=== PATIENT | male | born 1965 | race Caucasian/White ===

== ENCOUNTER 2020-08-06 00:32 | Inpatient (IN) | payer OTHER ==
[~2020-08-06] VITALS: Ht 182.9 cm; Wt 129.9 kg
[2020-08-06 03:41] LABS: Basophils # (auto) 0.1 10 ^3/uL (0-0.2); Basophils % (auto) 1.1 % (0.0-2.0); Eosinophils # (auto) 0.2 10 ^3/uL (0-0.8); Hematocrit 32.8 % (41.0-53.0); Hemoglobin 10.7 g/dL (13.5-17.5); Lymphocytes # (auto) 1.3 10 ^3/uL (0.4-5.4); Lymphocytes % (auto) 15.2 % (10.0-50.0); Mean Corpuscular Hemoglobin 25.4 pg (28.0-32.0); Mean Corpuscular Hgb Conc. 32.6 g/dL (32.0-36.0); Mean Corpuscular Volume 77.9 fL (80.0-100.0); Monocytes # (auto) 0.7 10 ^3/uL (0-1.3); Monocytes % (auto) 8.2 % (0.0-12.0); Neutrophils # (auto) 6.3 10 ^3/uL (1.6-8.6); Neutrophils % (auto) 73.5 % (37.0-80.0); Nucleated Red Blood Cells % 0.2 %; Platelet Count (auto) 264 10^3/uL (140-450); Red Blood Cells 4.21 10^6/uL (4.5-5.90); Red Cell Distribution Width 17.8 % (11.8-14.3); White Blood Cell 8.5 10^3/uL (4.4-10.8)
[2020-08-06 03:53] LABS: Alanine Aminotransferase 66 U/L (16-61); Albumin 1.8 g/dL (3.4-5.0); Anion Gap 6 (5-15); Aspartate Aminotransferase 43 U/L (15-37); BUN/Creatinine Ratio 8.5; Blood Urea Nitrogen 8 mg/dL (7-18); Calcium 8.5 mg/dL (8.5-10.1); Carbon Dioxide 30 mmol/L (21-32); Chloride 101 mmol/L (98-107); GFR African American 108 mL/min; GFR Non-African American 89 mL/min; Glucose 103 mg/dL (74-106); Magnesium 1.8 mg/dL (1.6-2.6); Potassium 4.4 mmol/L (3.5-5.1); Sodium 137 mmol/L (136-145)
[2020-08-06 03:58] LABS: Alkaline Phosphatase 97 U/L (45-117); Bilirubin, Total 0.2 mg/dL (0.2-1.0); Total Protein 6.8 g/dL (6.4-8.2)
[2020-08-06 04:07] LABS: INR 1.05 (0.9-1.15); Partial Thromboplastin Time 31.7 sec (23.0-31.2)
[2020-08-06 04:13] LABS: Urine Bacteria NONE SEEN /hpf (None Seen); Urine Blood Negative /uL (Negative); Urine Mucus FEW (None Seen); Urine Specific Gravity 1.018 (1.001-1.035); Urine WBC 1 /hpf (0 - 3)
[2020-08-06] MEDS ORDERED: IOHEXOL 350 MG/ML 100ML IJ ONE (06:07)
[2020-08-06] MEDS ORDERED: DexAMETHasone SOD PHOS 10MG/1ML VIAL INJ IV ONE (11:45)
[2020-08-06] MEDS ORDERED: cefTRIAXone 1GM/50ML D5W 50 ML IV ONE (11:45)
[2020-08-06] MEDS ORDERED: FUROSEMIDE 40 MG/4 ML VIAL IV ONE (11:45)
[2020-08-06] MEDS ORDERED: AZITHROMYCIN 500MG/ 250ML 250 ML IV ONE (11:45)
[2020-08-06] MEDS ORDERED: VANCOMYCIN 1GM/250ML 250 ML IV ONE (14:30)
[2020-08-06] MEDS ORDERED: ACETAMINOPHEN 500 MG TAB PO PRN ×2 (14:30)
[2020-08-06] MEDS ORDERED: LACTULOSE 20Gm/30ML SOLN PO PRN (14:30)
[2020-08-06] MEDS ORDERED: NITROGLYCERIN 0.4 MG SL TAB SL PRN (14:30)
[2020-08-06] MEDS ORDERED: MORPHINE SULF INJ 2 MG/ML SYRINGE 1ML IV PRN ×2 (14:30)
[2020-08-06] MEDS ORDERED: TEMAZEPAM 15 MG CAP PO PRN (14:30)
[2020-08-06] MEDS ORDERED: PROMETHAZINE HCL 25 MG/ML 1ML IV PRN (14:30)
[2020-08-06] MEDS ORDERED: traMADol HCL 50 MG TAB PO PRN (14:30)
[2020-08-06] MEDS ORDERED: VANCOMYCIN PER PHARMACY 0 MG IV SCH (14:30)
[2020-08-06] MEDS: AZITHROMYCIN 500MG/ 250ML 250 ML IV SCH (15:03)
[2020-08-06 15:44] VITALS: BP 112/50
[2020-08-06] MEDS: PIPERACILLIN-TAZOB 3.375GM 100 ML IV SCH (20:35)
[2020-08-06] MEDS ORDERED: ALBUTEROL SULFATE 90 MCG MDI IN ONE (20:44)
[2020-08-06 21:35] VITALS: BP 134/83
[2020-08-06] MEDS: BUDESONIDE (INHALATION) 180 MCG IH IN SCH (22:00)
[2020-08-07] MEDS: VANCOMYCIN 1GM/250ML 250 ML IV SCH ×3 (00:03→21:18)
[2020-08-07] MEDS: SODIUM CHLOR 0.9% PF (SALINE LOCK) 10ML VIAL/SYR IV SCH ×4 (00:03→21:19)
[2020-08-07] MEDS: FAMOTIDINE 20 MG TAB PO SCH ×3 (00:03→21:19)
[2020-08-07] MEDS: PIPERACILLIN-TAZOB 3.375GM 100 ML IV SCH ×4 (02:29→17:29)
[2020-08-07 04:39] VITALS: BP 128/76
[2020-08-07 05:34] LABS: Basophils # (auto) 0 10 ^3/uL (0-0.2); Basophils % (auto) 0.2 % (0.0-2.0); Eosinophils # (auto) 0 10 ^3/uL (0-0.8); Monocytes # (auto) 0.3 10 ^3/uL (0-1.3)
[2020-08-07 05:35] LABS: Hematocrit 36.4 % (41.0-53.0); Hemoglobin 12.1 g/dL (13.5-17.5); Lymphocytes # (auto) 0.8 10 ^3/uL (0.4-5.4); Lymphocytes % (auto) 9.2 % (10.0-50.0); Mean Corpuscular Hgb Conc. 33.4 g/dL (32.0-36.0); Mean Corpuscular Volume 78.1 fL (80.0-100.0); Monocytes % (auto) 3.1 % (0.0-12.0); Neutrophils % (auto) 87.5 % (37.0-80.0); Platelet Count (auto) 269 10^3/uL (140-450); Red Blood Cells 4.66 10^6/uL (4.5-5.90); Red Cell Distribution Width 18.3 % (11.8-14.3); White Blood Cell 9.1 10^3/uL (4.4-10.8)
[2020-08-07 05:48] LABS: Chloride 101 mmol/L (98-107); Potassium 4.4 mmol/L (3.5-5.1); Sodium 135 mmol/L (136-145)
[2020-08-07 05:58] LABS: Alanine Aminotransferase 66 U/L (16-61); Albumin 1.9 g/dL (3.4-5.0); Alkaline Phosphatase 95 U/L (45-117); Anion Gap 5 (5-15); Aspartate Aminotransferase 32 U/L (15-37); BUN/Creatinine Ratio 13.8; Bilirubin, Total 0.3 mg/dL (0.2-1.0); Blood Urea Nitrogen 15 mg/dL (7-18); Calcium 8.3 mg/dL (8.5-10.1); Carbon Dioxide 29 mmol/L (21-32); Cholesterol 202 mg/dL (< 200); GFR African American 91 mL/min; GFR Non-African American 75 mL/min; Glucose 142 mg/dL (74-106); HDL Cholesterol 24 mg/dL (40-59); LDL Cholesterol 173 mg/dL (< 100); Total Protein 6.8 g/dL (6.4-8.2); Triglycerides 112 mg/dL (< 150)
[2020-08-07] MEDS: BUDESONIDE (INHALATION) 180 MCG IH IN SCH ×2 (07:11→22:29)
[2020-08-07] MEDS: ALBUTEROL SULF HFA 90MCG INH 200DOSE IN SCH ×3 (07:11→22:29)
[2020-08-07 08:15] VITALS: BP 141/85
[2020-08-07 09:00] VITALS: BP 141/85
[2020-08-07] MEDS ORDERED: DexAMETHasone SOD PHOS 10MG/1ML VIAL INJ IV SCH (10:00)
[2020-08-07] MEDS ORDERED: ENOXAPARIN SOD 40 MG/0.4 ML SYRINGE SC SCH (10:00)
[2020-08-07] MEDS: POTASSIUM CHL 20 Meq TABLET PO SCH (10:13)
[2020-08-07] MEDS: ENOXAPARIN SOD 40 MG/0.4 ML SYRINGE SC SCH (10:13)
[2020-08-07] MEDS: ZINC SULFATE 220mg CAP or TAB PO SCH (10:13)
[2020-08-07] MEDS: AZITHROMYCIN 500MG/ 250ML 250 ML IV SCH (10:13)
[2020-08-07] MEDS: CHOLECALCIFEROL (VITD3) 2,000 UNIT CAP PO SCH (10:14)
[2020-08-07] MEDS: ASCORBIC ACID 1,000 MG TAB PO SCH (10:14)
[2020-08-07] MEDS: FUROSEMIDE 40 MG/4 ML VIAL IV SCH (10:14)
[2020-08-07 13:00] VITALS: BP 142/90
[2020-08-07] MEDS ORDERED: VANCOMYCIN PER PHARMACY 0 MG IV SCH (16:15)
[2020-08-07 17:00] VITALS: BP 144/96
[2020-08-07 22:00] VITALS: BP 130/86
[2020-08-08] MEDS: PIPERACILLIN-TAZOB 3.375GM 100 ML IV SCH ×5 (00:10→23:29)
[2020-08-08 05:00] VITALS: BP 107/53
[2020-08-08] MEDS: SODIUM CHLOR 0.9% PF (SALINE LOCK) 10ML VIAL/SYR IV SCH ×3 (05:14→21:42)
[2020-08-08] MEDS: VANCOMYCIN 1GM/250ML 250 ML IV SCH ×3 (05:14→21:42)
[2020-08-08 06:46] LABS: Eosinophils # (auto) 0 10 ^3/uL (0-0.8); Eosinophils % (auto) 0.1 % (0.0-7.0); Hemoglobin 11.4 g/dL (13.5-17.5); Monocytes # (auto) 0.9 10 ^3/uL (0-1.3); Neutrophils # (auto) 8.2 10 ^3/uL (1.6-8.6); Nucleated Red Blood Cells % 0.1 %
[2020-08-08 06:48] LABS: Basophils # (auto) 0.1 10 ^3/uL (0-0.2); Basophils % (auto) 0.5 % (0.0-2.0); Hematocrit 35.5 % (41.0-53.0); Lymphocytes # (auto) 1.4 10 ^3/uL (0.4-5.4); Lymphocytes % (auto) 13.2 % (10.0-50.0); Mean Corpuscular Hemoglobin 25.4 pg (28.0-32.0); Mean Corpuscular Hgb Conc. 32.2 g/dL (32.0-36.0); Monocytes % (auto) 8.6 % (0.0-12.0); Neutrophils % (auto) 77.6 % (37.0-80.0); Platelet Count (auto) 341 10^3/uL (140-450); Red Blood Cells 4.49 10^6/uL (4.5-5.90); Red Cell Distribution Width 18.3 % (11.8-14.3); White Blood Cell 10.5 10^3/uL (4.4-10.8)
[2020-08-08 07:31] LABS: BUN/Creatinine Ratio 16.2; Calcium 8.6 mg/dL (8.5-10.1); Potassium 4.1 mmol/L (3.5-5.1)
[2020-08-08] MEDS: ALBUTEROL SULF HFA 90MCG INH 200DOSE IN SCH ×3 (08:02→21:55)
[2020-08-08] MEDS: BUDESONIDE (INHALATION) 180 MCG IH IN SCH ×2 (08:03→21:55)
[2020-08-08] MEDS: FAMOTIDINE 20 MG TAB PO SCH ×2 (08:54→21:42)
[2020-08-08] MEDS: POTASSIUM CHL 20 Meq TABLET PO SCH (08:54)
[2020-08-08] MEDS: FUROSEMIDE 40 MG/4 ML VIAL IV SCH (08:54)
[2020-08-08] MEDS: ZINC SULFATE 220mg CAP or TAB PO SCH (08:54)
[2020-08-08] MEDS: ASCORBIC ACID 1,000 MG TAB PO SCH (08:55)
[2020-08-08] MEDS: ENOXAPARIN SOD 40 MG/0.4 ML SYRINGE SC SCH (08:55)
[2020-08-08] MEDS: CHOLECALCIFEROL (VITD3) 2,000 UNIT CAP PO SCH (08:55)
[2020-08-08 09:00] VITALS: BP 164/93
[2020-08-08 13:00] VITALS: BP 128/77
[2020-08-08 17:00] VITALS: BP 129/79
[2020-08-08] MEDS: ENOXAPARIN SOD 100 MG/1 ML SYRINGE SC SCH (21:43)
[2020-08-08 22:24] VITALS: BP 140/91
[2020-08-08] MEDS: MUPIROCIN 2% OINT 15gm or 22gm EACHNOSTRI SCH (22:34)
[2020-08-09] MEDS: VANCOMYCIN 1GM/250ML 250 ML IV SCH (04:18)
[2020-08-09 05:00] VITALS: BP 132/83
[2020-08-09] MEDS: SODIUM CHLOR 0.9% PF (SALINE LOCK) 10ML VIAL/SYR IV SCH ×3 (05:20→21:21)
[2020-08-09] MEDS: PIPERACILLIN-TAZOB 3.375GM 100 ML IV SCH ×4 (05:21→23:30)
[2020-08-09 07:20] LABS: CRP High Sensitivity 3.4 mg/dL (< 0.3)
[2020-08-09] MEDS: ALBUTEROL SULF HFA 90MCG INH 200DOSE IN SCH ×3 (07:49→22:16)
[2020-08-09] MEDS: BUDESONIDE (INHALATION) 180 MCG IH IN SCH ×2 (07:52→22:16)
[2020-08-09 09:00] VITALS: BP 144/84
[2020-08-09] MEDS: MUPIROCIN 2% OINT 15gm or 22gm EACHNOSTRI SCH ×3 (10:00→21:21)
[2020-08-09] MEDS: FAMOTIDINE 20 MG TAB PO SCH ×2 (11:04→21:21)
[2020-08-09] MEDS: FUROSEMIDE 40 MG/4 ML VIAL IV SCH (11:04)
[2020-08-09] MEDS: ENOXAPARIN SOD 100 MG/1 ML SYRINGE SC SCH (11:05)
[2020-08-09] MEDS: ZINC SULFATE 220mg CAP or TAB PO SCH (11:05)
[2020-08-09] MEDS: POTASSIUM CHL 20 Meq TABLET PO SCH (11:05)
[2020-08-09] MEDS: ASCORBIC ACID 1,000 MG TAB PO SCH (11:05)
[2020-08-09] MEDS: CHOLECALCIFEROL (VITD3) 2,000 UNIT CAP PO SCH (11:06)
[2020-08-09 13:00] VITALS: BP 145/96
[2020-08-09] MEDS: LINEZOLID 600MG TABLET PO SCH (21:21)
[2020-08-09 22:00] VITALS: BP 136/87
[2020-08-10 05:00] VITALS: BP 130/90
[2020-08-10] MEDS: SODIUM CHLOR 0.9% PF (SALINE LOCK) 10ML VIAL/SYR IV SCH ×3 (05:57→21:34)
[2020-08-10] MEDS: PIPERACILLIN-TAZOB 3.375GM 100 ML IV SCH ×4 (05:57→23:50)
[2020-08-10] MEDS: BUDESONIDE (INHALATION) 180 MCG IH IN SCH ×2 (06:21→22:50)
[2020-08-10] MEDS: ALBUTEROL SULF HFA 90MCG INH 200DOSE IN SCH ×3 (06:21→22:50)
[2020-08-10 08:00] VITALS: BP 129/86
[2020-08-10] MEDS: FUROSEMIDE 40 MG/4 ML VIAL IV SCH (09:02)
[2020-08-10] MEDS: MUPIROCIN 2% OINT 15gm or 22gm EACHNOSTRI SCH ×2 (09:02→21:35)
[2020-08-10] MEDS: ASCORBIC ACID 1,000 MG TAB PO SCH (09:03)
[2020-08-10] MEDS: FAMOTIDINE 20 MG TAB PO SCH ×2 (09:03→21:34)
[2020-08-10] MEDS: ZINC SULFATE 220mg CAP or TAB PO SCH (09:03)
[2020-08-10] MEDS: LINEZOLID 600MG TABLET PO SCH ×2 (09:03→21:34)
[2020-08-10] MEDS: POTASSIUM CHL 20 Meq TABLET PO SCH (09:03)
[2020-08-10] MEDS: CHOLECALCIFEROL (VITD3) 2,000 UNIT CAP PO SCH (09:03)
[2020-08-10] MEDS: ENOXAPARIN SOD 40 MG/0.4 ML SYRINGE SC SCH (09:04)
[2020-08-10 11:57] VITALS: BP 113/70
[2020-08-10 17:00] VITALS: BP 133/81
[2020-08-10 18:38] LABS: Basophils # (auto) 0 10 ^3/uL (0-0.2); Eosinophils # (auto) 0.1 10 ^3/uL (0-0.8); Monocytes # (auto) 0.9 10 ^3/uL (0-1.3); Nucleated Red Blood Cells % 0.1 %
[2020-08-10 18:39] LABS: Basophils % (auto) 0.5 % (0.0-2.0); Eosinophils % (auto) 1.1 % (0.0-7.0); Hematocrit 41.8 % (41.0-53.0); Hemoglobin 13.8 g/dL (13.5-17.5); Lymphocytes # (auto) 1.8 10 ^3/uL (0.4-5.4); Lymphocytes % (auto) 19.6 % (10.0-50.0); Mean Corpuscular Hemoglobin 25.9 pg (28.0-32.0); Mean Corpuscular Hgb Conc. 33.1 g/dL (32.0-36.0); Mean Corpuscular Volume 78.4 fL (80.0-100.0); Neutrophils # (auto) 6.3 10 ^3/uL (1.6-8.6); Neutrophils % (auto) 68.8 % (37.0-80.0); Platelet Count (auto) 440 10^3/uL (140-450); Red Blood Cells 5.34 10^6/uL (4.5-5.90); White Blood Cell 9.1 10^3/uL (4.4-10.8)
[2020-08-10 18:51] LABS: BUN/Creatinine Ratio 10.6; Calcium 8.7 mg/dL (8.5-10.1); Potassium 4.2 mmol/L (3.5-5.1)
[2020-08-10 22:00] VITALS: BP 153/94
[2020-08-10] MEDS ORDERED: ALBUTEROL SULF 2.5 MG/0.5ML(0.5%) NEB SOLN ONE (22:30)
[2020-08-10] MEDS ORDERED: BUDESONIDE (INHALATION) 0.5 MG/2 ML NEB ONE (22:30)
[2020-08-11 05:05] VITALS: BP 127/79
[2020-08-11] MEDS: PIPERACILLIN-TAZOB 3.375GM 100 ML IV SCH ×3 (05:47→17:55)
[2020-08-11] MEDS: SODIUM CHLOR 0.9% PF (SALINE LOCK) 10ML VIAL/SYR IV SCH ×2 (05:47→09:49)
[2020-08-11 08:53] LABS: Eosinophils # (auto) 0.1 10 ^3/uL (0-0.8); Monocytes # (auto) 0.6 10 ^3/uL (0-1.3); Neutrophils # (auto) 7.5 10 ^3/uL (1.6-8.6)
[2020-08-11 08:55] LABS: Basophils # (auto) 0.3 10 ^3/uL (0-0.2); Basophils % (auto) 2.6 % (0.0-2.0); Eosinophils % (auto) 1.2 % (0.0-7.0); Hematocrit 47.6 % (41.0-53.0); Hemoglobin 15.3 g/dL (13.5-17.5); Lymphocytes # (auto) 1.6 10 ^3/uL (0.4-5.4); Lymphocytes % (auto) 15.5 % (10.0-50.0); Mean Corpuscular Hemoglobin 25.5 pg (28.0-32.0); Mean Corpuscular Hgb Conc. 32.1 g/dL (32.0-36.0); Mean Corpuscular Volume 79.3 fL (80.0-100.0); Neutrophils % (auto) 74.7 % (37.0-80.0); Nucleated Red Blood Cells % 0.2 %; Platelet Count (auto) 474 10^3/uL (140-450); Red Cell Distribution Width 18.7 % (11.8-14.3)
[2020-08-11 09:08] VITALS: BP 130/76
[2020-08-11 09:08] LABS: BUN/Creatinine Ratio 9.9; Calcium 9.8 mg/dL (8.5-10.1)
[2020-08-11] MEDS: MUPIROCIN 2% OINT 15gm or 22gm EACHNOSTRI SCH (09:47)
[2020-08-11] MEDS: ASCORBIC ACID 1,000 MG TAB PO SCH (09:47)
[2020-08-11] MEDS: FAMOTIDINE 20 MG TAB PO SCH (09:47)
[2020-08-11] MEDS: ZINC SULFATE 220mg CAP or TAB PO SCH (09:47)
[2020-08-11] MEDS: CHOLECALCIFEROL (VITD3) 2,000 UNIT CAP PO SCH (09:47)
[2020-08-11] MEDS: LINEZOLID 600MG TABLET PO SCH (09:48)
[2020-08-11] MEDS: ENOXAPARIN SOD 40 MG/0.4 ML SYRINGE SC SCH (09:48)
[2020-08-11] MEDS: POTASSIUM CHL 20 Meq TABLET PO SCH (09:49)
[2020-08-11] MEDS: ALBUTEROL SULF HFA 90MCG INH 200DOSE IN SCH ×2 (10:28→15:17)
[2020-08-11] MEDS: BUDESONIDE (INHALATION) 180 MCG IH IN SCH (10:28)
[2020-08-11 13:00] VITALS: BP 124/72
[2020-08-11] MEDS ORDERED: MUPI2OIN2 EACHNOSTRI (14:06)
[2020-08-11] MEDS ORDERED: CLIN300C8 PO (14:06)
[2020-08-11 15:08] VITALS: BP 124/72
[2020-08-12] MEDS ORDERED: DOXY-286 PO (14:36)
== END 2020-08-11 19:07 | disposition home or self-care (01) | DRG 720 ==
LOC: EDBD 00:32 → ER 00:38 → TELE 00:39 → TELE-EAST 18:32
PROVIDERS: ADMIT Internal Medicine; ATTEND Internal Medicine Nephrology
DX: A41.89 Other specified sepsis (principal); U07.1 COVID-19; J12.89 Other viral pneumonia; J81.1 Chronic pulmonary edema; J90 Pleural effusion, not elsewhere classified; I10 Essential (primary) hypertension; R73.9 Hyperglycemia, unspecified; R19.7 Diarrhea, unspecified; E78.5 Hyperlipidemia, unspecified; F32.9 Major depressive disorder, single episode, unspecified; F41.9 Anxiety disorder, unspecified; I25.10 Atherosclerotic heart disease of native coronary artery without angina pectoris; K44.9 Diaphragmatic hernia without obstruction or gangrene; R65.20 Severe sepsis without septic shock; J15.212 Pneumonia due to Methicillin resistant Staphylococcus aureus; D50.9 Iron deficiency anemia, unspecified; J96.21 Acute and chronic respiratory failure with hypoxia; I25.2 Old myocardial infarction; Z68.38 Body mass index [BMI] 38.0-38.9, adult; J44.0 Chronic obstructive pulmonary disease with (acute) lower respiratory infection; E66.01 Morbid (severe) obesity due to excess calories; J44.9 Chronic obstructive pulmonary disease, unspecified
CPT/HCPCS: 36415; 36600; 71045; 71275; 76604; 80048; 80053; 80061; 80202; 81001; 82550; 82728; 82805; 83036; 83605; 83615; 83735; 83880; 84484; 85025; 85379; 85610; 85730; 86141; 87040; 87077; 87081; 87186; 87205; 87426; 87493; 93970; 94640; G0378; J0696; J1100; J2543